=== PATIENT | female | born 1960 | race Caucasian/White ===

== ENCOUNTER 2021-09-06 10:48 | Emergency (ER) | payer OTHER, SELFPAY ==
--- NOTE | 2021-09-06 10:50 | XRR_ITS ---
PROCEDURE INFORMATION: Exam: XR Chest Exam date and time: 09/06/2021 11:53 AM Age: 61 years old Clinical indication: Pain; Chest pressure; Additional info: Cp TECHNIQUE: Imaging protocol: XR of the chest. Views: 1 view. COMPARISON: No relevant prior studies available. FINDINGS: Lungs: Unremarkable. No consolidation. Pleural spaces: Unremarkable. No pleural effusion. No pneumothorax. Heart/Mediastinum: Unremarkable. No cardiomegaly. Bones/joints: Unremarkable. XR/XR chest 1V portable [id number] IMPRESSION: No acute findings.
--- NOTE | 2021-09-06 10:50 | ECG_ITS ---
[facility] Test Date: 2021-09-06 Pat Name: Fannie Shay Department: Room: Gender: Female Collateral Analyst: : 1960 Requested By: Calli Miller Order Number: [id number] Franklin MD: Nestor Wiley M.D. Measurements Intervals [place] Rate: 60 P: 57 OR: 177 QRS: 31 QRSD: 89 T: 61 QT: 413 QTc: 414 Interpretive Statements SINUS RHYTHM No previous ECG available for comparison Electronically Signed On 09-06-2021 16:50:58 CDT by Nestor Wiley M.D. [id number]
[2021-09-06 10:54] VITALS: BP 190/75; PULSE 70; RESP 18; TEMP 36.4; O2SAT 96; BMI 41.5
--- NOTE | 2021-09-06 11:16 | PC.NURSE ---
Pt placed on lunchroom monitor, cont. pulse ox and bp on arrival to room 1
--- NOTE | 2021-09-06 11:18 | CTR_ITS ---
PROCEDURE INFORMATION: Exam: CTA Chest With Contrast Exam date and time: 09/06/2021 12:01 PM Age: 61 years old Clinical indication: Pain; Shortness of breath; Chest pressure; Additional info: SOB TECHNIQUE: Imaging protocol: Computed tomographic angiography of the chest with contrast. 3D rendering (Not supervised by radiologist): MIP and/or 3D reconstructed images were created by the technologist. Radiation optimization: All CT scans at this facility use at least one of these dose optimization techniques: automated exposure control; mA and/or kV adjustment per patient size (includes targeted exams where dose is matched to clinical indication); or iterative reconstruction. Contrast material: OMNI 350; Contrast volume: 81 ml; Contrast route: INTRAVENOUS (IV); COMPARISON: CR (CHEST, ) 09/06/2021 11:53 AM RADIATION DOSE METRICS: Total DLP (mGy-cm): 517.02 FINDINGS: Pulmonary arteries: Normal. No pulmonary emboli. Aorta: Unremarkable. No aortic aneurysm. No aortic dissection. Lungs: There are pulmonary parenchymal calcifications consistent with remote granulomatous organism exposure. Pleural spaces: Unremarkable. No pneumothorax. No pleural effusion. Heart: Mild cardiomegaly. Lymph nodes: Unremarkable. No enlarged lymph nodes. Bones/joints: Unremarkable. No acute fracture. Soft tissues: Unremarkable. CT/CT angio chest PE protcl [id number] IMPRESSION: Mild cardiomegaly. No evidence for pulmonary embolus.
[2021-09-06 11:22] LABS: Basophils # 0.1 10^3/uL (0.0-0.1); Basophils % 0.7 %; Eosinophils # 0.1 10^3/uL (0.0-0.8); Eosinophils % 1.6 %; Hematocrit 42.6 % (37.0-47.0); Hemoglobin 13.7 g/dL (11.5-15.3); Lymphocytes # 3.6 10^3/uL (0.8-4.8); Lymphocytes % 40.3 %; Mean Corpuscular HGB Conc 32.2 g/dL (30.0-36.0); Mean Corpuscular Hemoglobin 28.4 pg (28.0-34.0); Mean Corpuscular Volume 88.4 fl (81-99); Monocytes # 0.8 10^3/uL (0.2-0.9); Monocytes % 8.9 %; Neutrophils # 4.29 10^3/uL (1.8-7.7); Neutrophils % 48.2 %; Nucleated Red Blood Cells % 0 %; Platelet Count 305 10^3/cmm (130-400); Red Blood Count 4.82 10^6/uL (4.1-5.3); Red Cell Distribution Width 13.5 % (12.1-15.1); White Blood Count 8.9 10^3/uL (4.0-10.0)
[2021-09-06] MEDS: HYDROmorphone 1 mg/mL INJ 1 mL 0.5 MG IVP ×2 (11:23→13:21)
[2021-09-06] MEDS: ondansetron 2 mg/ML SDV 2 mL 4 MG IVP (11:23)
--- NOTE | 2021-09-06 11:38 | W.ED.CHESTPA ---
HPI - Chest Pain General: Chief Complaint: Chest Pain Stated Complaint: SOB, Pain from back to chest Time Seen by Provider: 09/06/21 11:04 Source: patient Mode of arrival: ambulatory Limitations: no limitations History of Present Illness: 61-year-old female who states that over the last day she woke up this morning with some severe sharp chest pain that radiated to her back. States that it is very sharp in nature rates it a 9 out of 10 is worse with deep breaths 10. She denies any cough or fever she states she has had pleurisy in the past and this feels similar. She denies any vomiting or diarrhea. Associated symptoms: Reports dyspnea; Deny abdominal pain, fever(s), nausea or vomiting Review of Systems Const: Denies: fever(s), chills, body aches or change in appetite Eyes: Denies: blurry vision or eye discomfort ENMT: Denies: throat pain or dental pain Card: Reports: chest pain Resp: Reports: dyspnea GI: Denies: abdominal pain, nausea, vomiting or diarrhea : Denies: dysuria Musc: Denies: neck pain or back pain Skin/Breast: Denies: rash Neuro: Denies: headache(s) Psych: Denies: depression Nabil/Lymph: Denies: easy bruising All/Imm: Denies: urticaria PFSH ED PFSH: Medical History (Updated 09/06/21 @ 13:42 by Calli Miller MD) COPD (chronic obstructive pulmonary disease) Social History (Updated 09/06/21 @ 11:40 by Calli Miller MD) Substance/Drug Use: never Physical Exam Const: COMMON NORMALS: no acute distress, patient oriented x3 and healthy appearing HENMT: COMMON NORMALS: normocephalic and atraumatic HEAD & SCALP: normocephalic and atraumatic Eye: COMMON NORMALS: Equal, round and reactive pupils present and EOMs intact bilaterally PUPIL: Yes Equal, round and reactive pupils present Neck/C-Spine: COMMON NORMALS: full ROM and supple Chest: COMMONS NORMALS: normal inspection of the chest and normal palpation of entire chest wall Resp: COMMON NORMALS: normal respiratory effort, No retractions, No use of accessory muscles and clear to auscultation bilaterally AUSCULTATION: clear to auscultation bilaterally Cardio: COMMON NORMALS: regular rate, regular rhythm and No murmurs present (Cardio) RATE: regular rate RHYTHM: regular rhythm GI: COMMON NORMALS: Normal to inspection, nondistended, normoactive bowel sounds present, Soft to palpation, non-tender and no masses PALPATION: Yes Soft to palpation Extremity: COMMON NORMALS: normal to inspection and full ROM Neuro: COMMON NORMALS: patient oriented x3, moves all extremities and no focal motor deficits Psych: COMMON NORMALS: mental status grossly normal, Normal thought process present and cooperative THOUGHT PROCESS: Normal thought process present Skin: COMMON NORMALS: no rashes or lesions noted and no wounds GENERAL SKIN EXAM: no rashes or lesions noted Course Vital Signs: Vital signs: Vital Signs Temperature 97.6 F 09/06/21 10:54 Pulse Rate 56 L 09/06/21 12:51 Respiratory Rate 16 09/06/21 12:51 Blood Pressure 188/78 09/06/21 12:51 Pulse Oximetry 94 09/06/21 12:51 MDM - Chest Pain Medical Decision Making Patient presents here with chest pain likely pleuritic in nature her initial repeat troponin here is negative CTA shows no signs of PE or dissection she feels improved we will place her on hydrocodone and Naprosyn she is to follow-up with her PCP and return if worsening she understands agrees to plan. Lab Data : 09/06/21 11:08 09/06/21 11:08 Radiology Impressions Chest X-Ray 09/06/21 10:50 IMPRESSION: No acute findings. Chest CTA 09/06/21 11:18 IMPRESSION: Mild cardiomegaly. No evidence for pulmonary embolus. Laboratory Results WBC 8.9 10^3/uL (4.0-10.0) 09/06/21 11:08 RBC 4.82 10^6/uL (4.1-5.3) 09/06/21 11:08 Hgb 13.7 g/dL (11.5-15.3) 09/06/21 11:08 Hct 42.6 % (37.0-47.0) 09/06/21 11:08 MCV 88.4 fl (81-99) 09/06/21 11:08 MCH 28.4 pg (28.0-34.0) 09/06/21 11:08 MCHC 32.2 g/dL (30.0-36.0) 09/06/21 11:08 RDW 13.5 % (12.1-15.1) 09/06/21 11:08 Plt Count 305 10^3/cmm (130-400) 09/06/21 11:08 MPV 11.0 fL (7.4-10.4) H 09/06/21 11:08 Neut % (Auto) 48.2 % 09/06/21 11:08 Lymph % (Auto) 40.3 % 09/06/21 11:08 [place] % (Auto) 8.9 % 09/06/21 11:08 Eos % (Auto) 1.6 % 09/06/21 11:08 Baso % (Auto) 0.7 % 09/06/21 11:08 Neut # (Auto) 4.29 10^3/uL (1.8-7.7) 09/06/21 11:08 Lymph # (Auto) 3.6 10^3/uL (0.8-4.8) 09/06/21 11:08 [place] # (Auto) 0.8 10^3/uL (0.2-0.9) 09/06/21 11:08 Eos # (Auto) 0.1 10^3/uL (0.0-0.8) 09/06/21 11:08 Baso # (Auto) 0.1 10^3/uL (0.0-0.1) 09/06/21 11:08 Nucleated RBC % (auto) 0 % 09/06/21 11:08 Nucleated RBCs # 0.0 /100WBC 09/06/21 11:08 Sodium 138 mmol/L (136-145) 09/06/21 11:08 Potassium 3.8 mmol/L (3.5-5.1) 09/06/21 11:08 Chloride 101 mmol/L (98-107) 09/06/21 11:08 Carbon Dioxide 25 mmol/L (22-29) 09/06/21 11:08 Anion Gap 15.8 (5-19) 09/06/21 11:08 BUN 21 mg/dL (8-23) 09/06/21 11:08 Creatinine 0.7 mg/dL (0.5-0.9) 09/06/21 11:08 GFR Calculation 84.8 mL/min (90-130) L 09/06/21 11:08 Glucose 112 mg/dL (65-115) 09/06/21 11:08 Calculated Osmolality 290 mOsm/kg (285-295) 09/06/21 11:08 Calcium 9.3 mg/dL (8.5-10.5) 09/06/21 11:08 Total Bilirubin 0.3 mg/dL (0.15-1.2) 09/06/21 11:08 AST 31 U/L (0-32) 09/06/21 11:08 ALT 36 U/L (0-33) H 09/06/21 11:08 Alkaline Phosphatase 113 IU/L (35-105) H 09/06/21 11:08 Troponin T Baseline 9 ng/L (0-10) 09/06/21 11:08 Troponin T 120 Minute 6.37 ng/L (0-10) 09/06/21 13:07 Delta Troponin T -2.63 ABS# (0-10) L 09/06/21 13:07 Total Protein 7.7 g/dL (6.6-8.7) 09/06/21 11:08 Albumin 4.3 g/dL (3.5-5.2) 09/06/21 11:08 Globulin 3.4 g/dL (1.3-4.6) 09/06/21 11:08 EKG Data EKG 1: I personally reviewed and interpreted this EKG as follows: EKG interpretation date: 09/06/21 EKG interpretation time: 11:01 Interpretation: nsr hr [address] or t wave abnormalities qrs 89 qtc 414 EKG 2: I personally reviewed and interpreted this EKG as follows: EKG interpretation date: 09/06/21 EKG interpretation time: 13:04 Interpretation: sinus yahaira hr [address] or t wave abnormalities qrs 89 qtc 431 Discharge Plan Discharge Patient Disposition: Home Clinical Impression: Chest pain Qualifiers: Chest pain type: unspecified Qualified Code(s): R07.9 - Chest pain, unspecified Condition: Stable Prescriptions: New hydrocodone-acetaminophen 5-325 mg tablet 1 tab PO Q6H PRN (Reason: pain) Qty: 14 0RF ondansetron 4 mg tablet,disintegrating 4 mg PO Q6H PRN (Reason: nausea and vomiting) Qty: 14 0RF Naprosyn 500 mg tablet 500 mg PO BID PRN (Reason: pain) Qty: 20 0RF No Action metoprolol tartrate 50 mg tablet 50 mg PO DAILY 0RF furosemide 20 mg tablet 10 mg PO QAM 0RF omeprazole 20 mg tablet,disintegrat, delay rel PO 0RF Flovent Diskus 50 mcg/actuation blister with device 1 inh inhalation BID 0RF albuterol sulfate 90 mcg/actuation HFA aerosol inhaler 1 inh inhalation QID 0RF Discharge Orders: Discharge ED (Routine); Ordered 09/06/21 Ordered By: Calli Miller Referrals: Sharlene Yoo MD [Staff Physician] - 1-3 days Discharge Diet: Advance as tolerated Discharge Activity: Resume usual activity Patient Instructions: Chest Pain (ED), Opioid Safety Coding Level of Care Code ED Reeler Operator for Chg Fwd Exam Comprehensive
[2021-09-06 11:39] VITALS: BP 188/85; PULSE 51; RESP 25; O2SAT 97
[2021-09-06 11:39] LABS: Alanine Aminotransferase 36 U/L (0-33); Albumin Level 4.3 g/dL (3.5-5.2); Alkaline Phosphatase 113 IU/L (35-105); Aspartate Amino Transferase 31 U/L (0-32); Blood Urea Nitrogen 21 mg/dL (8-23); Calcium 9.3 mg/dL (8.5-10.5); Carbon Dioxide 25 mmol/L (22-29); Chloride 101 mmol/L (98-107); Globulin 3.4 g/dL (1.3-4.6); Glomerular Filtration Rate 84.8 mL/min (90-130); Glucose 112 mg/dL (65-115); Osmolality Calculated 290 mOsm/kg (285-295); Sodium 138 mmol/L (136-145); Total Bilirubin 0.3 mg/dL (0.15-1.2); Total Protein 7.7 g/dL (6.6-8.7)
[2021-09-06 11:40] LABS: Troponin(5th) Baseline 9 ng/L (0-10)
[2021-09-06 11:46] LABS: Anion Gap 15.8 (5-19); Potassium 3.8 mmol/L (3.5-5.1)
[2021-09-06] MEDS: iohexol 350 mg/mL 100 mL Btl IV (12:05)
--- NOTE | 2021-09-06 12:50 | ECG_ITS ---
[facility] Test Date: 2021-09-06 Pat Name: Fannie Shay Department: Room: Gender: Female Nnps: : 1960 Requested By: Calli Miller Order Number: [id number] Franklin MD: Nestor Wiley M.D. Measurements Intervals [place] Rate: 56 P: 51 OK: 179 QRS: 20 QRSD: 89 T: 54 QT: 440 QTc: 426 Interpretive Statements SINUS BRADYCARDIA Compared to ECG 09/06/2021 11:01:03 Sinus rhythm no longer present Electronically Signed On 09-06-2021 18:07:30 CDT by Nestor Wiley M.D. [email or web address] hospitalAmplion Clinical Communicationsselect medical ohiohealth rehabilitation [facility] - [place].[employer]/store/OM/[id number]
[2021-09-06 12:51] VITALS: BP 188/78; PULSE 56; RESP 16; O2SAT 94
[2021-09-06 13:35] LABS: Troponin 5 2HR 6.37 ng/L (0-10)
[2021-09-06 13:43] LABS: Troponin 5 2HR Delta -2.63 ABS# (0-10)
[2021-09-06 13:58] VITALS: BP 193/88; PULSE 52; RESP 18; O2SAT 95
== END 2021-09-06 14:04 | disposition home or self-care (01) ==
PROVIDERS: Emergency Provider Emergency Medicine
DX: R07.9 Chest pain, unspecified (principal); J44.9 Chronic obstructive pulmonary disease, unspecified
CPT/HCPCS: 71045; 71275; 80053; 84484; 85025; 93005; 96374; 96375; 96376; 99284; J1170; J2405; Q9967

== ENCOUNTER 2022-12-10 13:27 | Observation (INO) | payer OTHER, SELFPAY ==
[2022-12-10] VITALS (9 sets, daily range): BP systolic 134–229; BP diastolic 78–174; PULSE 75–134; RESP 16–24; TEMP 36.5–36.8; O2SAT 96–99; BMI 41.1
--- NOTE | 2022-12-10 13:40 | ED_ITS ---
HPI - Chest Pain General: Chief Complaint: Chest Pain Stated Complaint: Naila sent for heart issues Time Seen by Provider: 12/10/22 13:33 History of Present Illness: Ms. Shay is a 62-year-old lady with history of COPD and hypertension presented to the emergency department for evaluation of chest pain and shortness of breath. She notes intermittent episodes of fluttering in her chest and squeezing pressure as well as shortness of breath over the past few weeks which has been i ncreasing in frequency and intensity. Worse symptoms with exertion and lying flat. She also notes pain radiation up into her neck and at times headache. Moderate to severe in intensity. Denies history of atrial fibrillation. Reports compliance with her medications. No other specific changes in health, exacerbating, or alleviating factors identified. Onset (ago): week(s) Timing of current episode: episodic Pain location: substernal Pain radiation: neck Quality: heaviness Associated symptoms: Reports dyspnea, nausea and palpitations Review of Systems General: Reports: 10 or more systems reviewed and unremarkable except in HPI and below Card: Reports: palpitations Resp: Reports: dyspnea GI: Reports: nausea PFSH ED PFSH: Medical History COPD (chronic obstructive pulmonary disease) Social History Substance/Drug Use: never Physical Exam Const: COMMON NORMALS: alert GENERAL APPEARANCE: cooperative and well developed HENMT: COMMON NORMALS: normocephalic and atraumatic HEAD & SCALP: normocephalic and atraumatic Eye: COMMON NORMALS: conjunctivae normal CONJUNCTIVA: Yes conjunctivae normal SCLERA: sclerae normal Neck/C-Spine: COMMON NORMALS: supple GENERAL: Yes trachea midline Resp: COMMON NORMALS: normal respiratory effort EFFORT & INSPECTION: Yes able to speak in complete sentences Cardio: COMMON NORMALS: regular rate RATE: regular rate RHYTHM: abnormal rhythm irregularly irregular GI: COMMON NORMALS: Soft to palpation PALPATION: Yes Soft to palpation and No Tenderness to palpation present (GI) Extremity: GENERAL: Yes normal exam except as noted and No edema Neuro: COMMON NORMALS: moves all extremities SENSORIUM/ORIENTATION: Yes alert and No Orientation impaired Psych: COMMON NORMALS: mental status grossly normal and Normal thought process present THOUGHT PROCESS: Normal thought process present Course Vital Signs: Vital signs: Vital Signs Temperature 98.4 F 12/12/22 11:51 Pulse Rate 85 12/12/22 11:51 Respiratory Rate 16 12/12/22 11:51 Blood Pressure 144/73 12/12/22 11:51 Pulse Oximetry 95 12/12/22 11:51 Oxygen Delivery Me thod Room Air 12/12/22 11:26 MDM - Chest Pain Medical Decision Making 62-year-old lady presenting with chest discomfort and generalized illness. Exam as noted. Nontoxic. EKG demonstrates atrial fibrillation with no STEMI. No significant hematologic or metabolic abnormalities to explain symptoms. Negative range 2-hour delta troponin. No UTI. Chest x-ray with no lobar consolidation or pneumothorax. Treated during ED course with nitroglycerin and aspirin. Patient has new onset A-fib with signs and symptoms of congestive heart failure. Given severity of symptoms she requires in-hospital evaluation. The results of ED evaluation were discussed with the patient including plan for admission due to requirement for level of care not available if discharged to prevent significant worsening/deterioration. Patient agreeable with plan. Discussed with hospitalist service who was agreeable to admit patient. Medical Records I reviewed the patient's medical records. Lab Data I reviewed the patient's lab results. 12/10/22 13:45 12/12/22 04:08 Radiology Impressions Chest X-Ray 12/10/22 13:41 Impression: Negative chest. Carotid Doppler Study 12/11/22 16:38 IMPRESSION: No carotid arterial stenosis. REFERENCES: SRU CRITERIA. The degree of internal carotid artery stenosis is based on criteria defined by the Society of Radiologists in Ultrasound (SRU). Normal is no stenosis. Mild is less than 50% stenosis. Moderate is 50-69% stenosis. Severe is greater than 69% stenosis to near occlusion. Near occlusion is a markedly narrowed lumen. Total occlusion is no detectable patent lumen. Laboratory Results WBC 8.2 10^3/uL (4.0-10.0) 12/10/22 13:45 RBC 5.07 10^6/uL (4.1-5.3) 12/10/22 13:45 Hgb 14.6 g/dL (11.5-15.3) 12/10/22 13:45 Hct 44.9 % (37.0-47.0) 12/10/22 13:45 MCV 88.6 fl (81-99) 12/10/22 13:45 MCH 28.8 pg (28.0-34.0) 12/10/22 13:45 MCHC 32.5 g/dL (30.0-36.0) 12/10/22 13:45 RDW 14.0 % (12.1-15.1) 12/10/22 13:45 Plt Count 313 10^3/cmm (130-400) 12/10/22 13:45 MPV 10.7 fL (7.4-10.4) H 12/10/22 13:45 Neut % (Auto) 46.5 % 12/10/22 13:45 Lymph % (Auto) 43.8 % 12/10/22 13:45 [place] % (Auto) 7.4 % 12/10/22 13:45 Eos % (Auto) 1.2 % 12/10/22 13:45 Baso % (Auto) 0.7 % 12/10/22 13:45 Neut # (Auto) 3.83 10^3/uL (1.8-7.7) 12/10/22 13:45 Lymph # (Auto) 3.6 10^3/uL (0.8-4.8) 12/10/22 13:45 [place] # (Auto) 0.6 10^3/uL (0.2-0.9) 12/10/22 13:45 Eos # (Auto) 0.1 10^3/uL (0.0-0.8) 12/10/22 13:45 Baso # (Auto) 0.1 10^3/uL (0.0-0.1) 12/10/22 13:45 Nucleated RBC % (auto) 0 % 12/10/22 13:45 Nucleated RBCs # 0.0 /100WBC 12/10/22 13:45 PT 12.60 SECONDS (12.1-14.9) 12/10/22 13:45 INR 0.92 (0.8-1.2) 12/10/22 13:45 APTT 26.7 SECONDS (23.9-36.7) 12/10/22 13:45 D-Dimer 0.38 ug/mIFEU (0-0.59) 12/10/22 13:45 Sodium 137 mmol/L (136-145) 12/10/22 13:45 Potassium 4.0 mmol/L (3.5-5.1) 12/10/22 13:45 Chloride 100 mmol/L (98-107) 12/10/22 13:45 Carbon Dioxide 24 mmol/L (22-29) 12/10/22 13:45 Anion Gap 17.0 (5-19) 12/10/22 13:45 BUN 23 mg/dL (8-23) 12/10/22 13:45 Creatinine 0.8 mg/dL (0.5-0.9) 12/10/22 13:45 GFR Calculation 72.4 mL/min (90-130) L 12/10/22 13:45 Glucose 132 mg/dL (65-115) H 12/10/22 13:45 Calculated Osmolality 290 mOsm/kg (285-295) 12/10/22 13:45 Calcium 9.6 mg/dL (8.5-10.5) 12/10/22 13:45 Magnesium 2.0 mg/dL (1.7-2.3) 12/10/22 13:45 Total Bilirubin 0.3 mg/dL (0.15-1.2) 12/10/22 13:45 AST 19 U/L (0-32) 12/10/22 13:45 ALT 20 U/L (0-33) 12/10/22 13:45 Alkaline Phosphatase 95 U/L (35-105) 12/10/22 13:45 Troponin T Baseline 9 ng/L (0-10) 12/10/22 13:45 NT-Pro-B Natriuret Pep 867 pg/mL (0-125) H 12/10/22 13:45 Total Protein 7.3 g/dL (6.6-8.7) 12/10/22 13:45 Albumin 4.2 g/dL (3.5-5.2) 12/10/22 13:45 Globulin 3.1 g/dL (1.3-4.6) 12/10/22 13:45 TSH 4.09 uIU/mL (0.27-4.20) 12/10/22 13:45 Urine Color Yellow (Yellow) 12/10/22 14:05 Urine Appearance Clear (CLEAR) 12/10/22 14:05 Urine pH 7 (5-7) 12/10/22 14:05 Ur Specific [place] 1.005 (1.005-1.030) 12/10/22 14:05 Urine Protein Neg (Negative) 12/10/22 14:05 Urine Glucose (UA) Norm (Normal) 12/10/22 14:05 Urine Ketones Negative (Negative) 12/10/22 14:05 Urine Blood Neg (Negative) 12/10/22 14:05 Urine Nitrate Negative (Negative) 12/10/22 14:05 Urine Bilirubin Neg (Negative) 12/10/22 14:05 Urine Urobilinogen Norm mg/dL (Negative) 12/10/22 14:05 Ur Leukocyte Esterase Negative (Negative) 12/10/22 14:05 Discharge Plan Discharge Patient Disposition: Placed in Observation Admit Provider: Rosalio Lara Clinical Impression: New onset a-fib, Chest pain, Symptom of congestive heart failure Discharge Diet: Usual diet and Cardiac Discharge Activity: Resume usual activity Coding Level of Care Code ED Banding Machine Operator for Andrade Charles
--- NOTE | 2022-12-10 13:41 | ECG_ITS ---
[facility] Test Date: 2022-12-10 Pat Name: Fannie Shay Department: Room: Gender: Female Coordinator Skill Training Program: : 1960 Requested By: Elmo Koch Order Number: [id number] Reid MD: Mariama Agarwal M.D. Measurements Intervals [place] Rate: 87 P: 0 NV: 0 QRS: 15 QRSD: 91 T: 67 QT: 380 QTc: 459 Interpretive Statements ATRIAL FIBRILLATION ABNORMAL RHYTHM ECG Compared to ECG 09/06/2021 13:04:37 Sinus bradycardia no longer present Electronically Signed On 12-10-2022 13:54:19 CDT by Mariama Agarwal M.D. [email or web address] [email or web address] Technologies/store/NU/[id number] f
--- NOTE | 2022-12-10 13:41 | XR_ITS ---
WS: [id number] Portable AP upright chest, 12/10/2022 Clinical Data: cp Comparison: Portable chest, 09/06/2021 Findings: No nodules, masses or effusions are seen. The heart is normal. The pulmonary vascularity is not increased. No pneumonia or pneumothorax is seen. Monitor leads are on the chest wall. The patien t's clothing obscures only minimal detail. XR/XR chest 1V portable [id number] Impression: Negative chest.
[2022-12-10] MEDS: aspirin 81 mg Chew Tablet 324 MG PO (13:47)
[2022-12-10] MEDS: nitroglycerin 0.4 mg sublingual Tablet SUBLINGUAL (13:59)
[2022-12-10 14:03] LABS: Basophils # 0.1 10^3/uL (0.0-0.1); Basophils % 0.7 %; Eosinophils # 0.1 10^3/uL (0.0-0.8); Eosinophils % 1.2 %; Hematocrit 44.9 % (37.0-47.0); Hemoglobin 14.6 g/dL (11.5-15.3); Lymphocytes # 3.6 10^3/uL (0.8-4.8); Lymphocytes % 43.8 %; Mean Corpuscular HGB Conc 32.5 g/dL (30.0-36.0); Mean Corpuscular Hemoglobin 28.8 pg (28.0-34.0); Mean Corpuscular Volume 88.6 fl (81-99); Mean Platelet Volume 10.7 fL (7.4-10.4); Monocytes # 0.6 10^3/uL (0.2-0.9); Monocytes % 7.4 %; Neutrophils # 3.83 10^3/uL (1.8-7.7); Neutrophils % 46.5 %; Nucleated Red Blood Cells % 0 %; Platelet Count 313 10^3/cmm (130-400); Red Blood Count 5.07 10^6/uL (4.1-5.3); White Blood Count 8.2 10^3/uL (4.0-10.0)
[2022-12-10 14:18] LABS: Troponin(5th) Baseline 9 ng/L (0-10)
[2022-12-10 14:20] LABS: Add Urine Microscopic? NO; Charge for UA Resulting for Rev
[2022-12-10 14:23] LABS: INR 0.92 (0.8-1.2)
[2022-12-10 14:25] LABS: Partial Thromboplastin Time 26.7 SECONDS (23.9-36.7)
[2022-12-10 14:29] LABS: Alanine Aminotransferase 20 U/L (0-33); Albumin Level 4.2 g/dL (3.5-5.2); Alkaline Phosphatase 95 U/L (35-105); Aspartate Amino Transferase 19 U/L (0-32); Blood Urea Nitrogen 23 mg/dL (8-23); Calcium 9.6 mg/dL (8.5-10.5); Carbon Dioxide 24 mmol/L (22-29); Chloride 100 mmol/L (98-107); D Dimer 0.38 ug/mIFEU (0-0.59); Globulin 3.1 g/dL (1.3-4.6); Glomerular Filtration Rate 72.4 mL/min (90-130); Glucose 132 mg/dL (65-115); NT Pro B Type Natriuretic Pept 867 pg/mL (0-125); Osmolality Calculated 290 mOsm/kg (285-295); Sodium 137 mmol/L (136-145); Thyroid Stimulating Hormone 4.09 uIU/mL (0.27-4.20); Total Bilirubin 0.3 mg/dL (0.15-1.2); Total Protein 7.3 g/dL (6.6-8.7)
[2022-12-10 14:49] LABS: Bilirubin Urine Neg (Negative); Blood Urine Neg (Negative); Glucose Urine UA Norm (Normal); Ketones Urine Negative (Negative); Leukocyte Esterase Urine Negative (Negative); Nitrate Urine Negative (Negative); Protein Urine Neg (Negative); Specific Gravity, Urine 1.005 (1.005-1.030); Urine Appearance Clear (CLEAR); Urine Color Yellow (Yellow); Urobilinogen Urine Norm (Negative); pH Urine 7 (5-7)
--- NOTE | 2022-12-10 15:02 | PC.PHAR ---
PT CONFUSED ABOUT METOPROLOL AND METFORMIN. VERIFIED DRUG, STRENGTH, DOSAGE AND LAST FILL. 12/10/22
--- NOTE | 2022-12-10 15:23 | PM.HP ---
Providers/Chief Complaint Admitting Physician: Rosalio Lara MD Primary Care Provider: Sharlene Yoo MD Chief Complaint: Naila sent for heart issues History of Present Illness Fannie Shay is a 62 year old female with Hx of HTN, asthma,, pre-DM2, GERD, and arthritis presents to ED with CP and SOB. Onset 3 weeks. Describes intermittent episodes of palpitations and substernal CP associated with SOB. States these have been increasing in intensity over the past 2 weeks. Aggravated by laying flat, exertion, and some radiation to head causing HARRELL. States these episodes last for minutes to hours. Hx of heart flutters but never evaluated by physician. 1 episode of LOC in 07/01, went to [facility] ED for PNA, no abnormal rhythm at time per patient. Admit to having fairly consistent sensation fo suffocation while laying flat in bed causing some CP. improves when sitting up. Denies Hx of NH, HF, CVA, stents. No Hx of ECHO, PCI or stress test. Seen in bed in ED hemodynamically stable in afib rate controlled. currently w/o CP, palpitations, SOB. states that weakens and fatigue have improved since episode ended. Review of Systems General: Reports: 10 or more systems reviewed and unremarkable except in HPI and below Const: Denies: fever(s) or chills Eyes: Denies: change in vision or blurry vision ENMT: Denies: throat pain, odynophagia or hoarseness Card: Reports: chest pain, palpitations, irregular heart rhythm and dyspnea on exertion Resp: Reports: dyspnea; Denies: productive cough, non-productive cough or wheezing GI: Denies: abdominal pain, nausea, vomiting, diarrhea or constipation Musc: Denies: neck pain, back pain or joint pain Skin/Breast: Denies: rash or new lesions Neuro: Denies: headache(s), numbness in extremities or weakness in extremities Medications/Allergies Home Medications Medication Instructions Recorded Confirmed Last Taken Type albuterol sulfate 90 mcg/actuation 1 inh inhalation QID 09/06/21 12/10/22 12/10/22 History aerosol inhaler fluticasone propionate 50 1 inh inhalation BID 09/06/21 12/10/22 12/10/22 History mcg/actuation blister powder for inhalation (Flovent Diskus) omeprazole 20 mg delayed 20 mg PO DAILY PRN Acid Reflux 09/06/21 12/10/22 Unknown History release,disintegrating tablet Lactobacillus acidophilus 100 mg PO DAILY 12/10/22 12/10/22 12/09/22 History (Acidophilus capsule) cranberry 400 mg capsule 400 mg PO DAILY 12/10/22 12/10/22 12/09/22 History estradiol 0.5 mg tablet 0.5 mg PO DAILY 12/10/22 12/10/22 12/10/22 History fexofenadine 180 mg tablet 180 mg PO DAILY 12/10/22 12/10/22 12/10/22 History hydrochlorothiazide 25 mg tablet 25 mg PO DAILY 12/10/22 12/10/22 Unknown History lisinopril 20 mg tablet 20 mg PO DAILY 12/10/22 12/10/22 12/10/22 History meloxicam 15 mg tablet 15 mg PO DAILY 12/10/22 12/10/22 12/10/22 History metformin 500 mg tablet,extended 500 mg PO DAILY 12/10/22 12/10/22 12/09/22 History release 24 hr metoprolol succinate 100 mg 100 mg PO DAILY 12/10/22 12/10/22 12/10/22 History tablet,extended release 24 hr Allergies Allergy/AdvReac Type Severity Reaction Status Date / Time morphine Allergy Mild ADR-Dizzine Verified 09/06/21 10:56 ss metronidazole [From Flagyl] Allergy ALGY-Hives Verified 09/06/21 10:56 PFSH Acute PFSH: Medical History COPD (chronic obstructive pulmonary disease) Social History Substance/Drug Use: never Vitals/I&O/Wt Last Vital Signs Temp 98.3 F 12/10/22 13:31 Pulse 93 12/10/22 15:18 Resp 16 12/10/22 15:18 BP 134/98 12/10/22 15:18 Pulse Ox 96 12/10/22 15:18 O2 Del Method Room Air 12/10/22 13:31 Weight last 48 hrs Weight 240 lb Physical Exam Narrative: General: AOx3, no acute distress, well developed, well nourished, appears stated age psych: appropriate mood and affect. good judgment and insight. No suicidal or homicidal ideation. Head: atraumatic, normocephalic, no mass/lesions Eyes: conjunctiva clear w/o exudate or hemorrhage. non-icteric, EOM intact, PERRLA. no signs of nystagmus Nose: nasal mucosa pink, septum midline Oropharynx: good dentition, pink moist mucosa, non-deviated tongue, no buccal nodules/lesions. no pharyngeal exudate Neck: FROM, no lymphadenopathy, no tracheal deviation, non tender, thyroid gland normal w/o mass. supple Chest: atraumatic, symmetrical CVD: afib, normal rate, normal S1 and S2, no M/R/G. 2+ pulse x 4 extremities, no JVD, no carotid bruit. Lungs: clear lung sounds in all vasquez, no rhonchi, wheezing, rales. Abdomen: NT, ND, soft, NABS. No hepatosplenomegaly, no mass. umbilicus midline w/o herniation : not done on todays examination Rectal: not done on todays examination Spine: no visible deformities, FROM, 5/5 strength Extremities: FROM and 5/5 strength in BUE and BLE. no visible joint abnormalities on active and passive ROM. Neuro: CNII-XII grossly intact. No atrophy, weakness, tremors or clonus.? 2+ DTR, no sensory abnormalities. Skin:? no rash, vesicles, lesions. Data 12/10/22 13:45 12/10/22 13:45 A&P Assessment and plan (1) Symptom of congestive heart failure: concern for new onset HF, BNP 867 will get ECHO, carodid US, AM BNP BNP elevated could be 2/2 afib; however, Sx of orthopnea concerning for underlying HF will give IV lasix 40mg x 1, re-eval in AM (2) New onset a-fib: rate controlled on home Toprol XL 100mg qd, monitor telemetry [id number] score: 2. will start ASA daily AM EKG (3) Paroxysmal A-fib: (4) HTN (hypertension): continue HCTZ and lisinopril, Toprol XL 100mg (5) Pre-diabetes: LDSSI with accuchecks (6) Asthma: continue flovent, albuterol nebs (7) GERD (gastroesophageal reflux disease): protonix 40 Plan admit to [facility] telemetry continue home Metoprolol Succinate 100mg qhs. monitor. may need to increase dosage. ECHO, carotid US AM labs: CMP, BNP, A1c, TSH MARIAM-VASC score -2; started on ASA Kimi 40mg BID due to BMI >40 FULL code Attestations Medical Necessity Statement*: observation for new onset atrial fibrillation. Coding Level of Care Code 79371 Diagnoses Symptom of congestive heart failure R09.89 New onset a-fib I48.91 Paroxysmal A-fib I48.0 HTN (hypertension) I10 Pre-diabetes R73.03 Asthma J45.909 GERD (gastroesophageal reflux disease) K21.9
--- NOTE | 2022-12-10 16:17 | ECG_ITS ---
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 Measurements Intervals [place] Rate: 80 P: 0 ME: 0 QRS: 20 QRSD: 85 T: 57 QT: 399 QTc: 461 Interpretive Statements ATRIAL FIBRILLATION ABNORMAL RHYTHM ECG Compared to ECG 12/10/2022 13:36:57 No significant changes Electronically Signed On 12-10-2022 22:59:21 CDT by Mariama Agarwal M.D. [id number]
[2022-12-10 16:41] LABS: Troponin 5 2HR 7.75 ng/L (0-10); Troponin 5 2HR Delta -1.25 ABS# (0-10)
[2022-12-10 17:44] LABS: Glucose Point of Care 158 mg/dL (70-110)
[2022-12-10] MEDS: enoxaparin 40 mg/0.4 mL Syringe SUBCUT (18:05)
[2022-12-10] MEDS: FUROsemide 10 mg/mL SDV 4mL 40 MG IVP (18:06)
[2022-12-10] MEDS: insulin lispro 100 unit/1 mL SUBCUT (18:06)
[2022-12-10] MEDS: ondansetron 2 mg/ML SDV 2 mL 4 MG IVP (20:07)
[2022-12-10 20:22] LABS: Troponin 5 6HR 7.85 ng/L (0-10)
[2022-12-10 20:39] LABS: Troponin 5 6HR Delta -1.15 ng/L (0-12)
--- NOTE | 2022-12-10 20:59 | PC.NURSE ---
Patient is c/o dizziness and nausea. Last BP is 149/90. She is in afib at rate of 67. Administered Zofran as ordered and documented. Patient is reporting relief at this time.
[2022-12-10 21:17] LABS: Glucose Point of Care 158 mg/dL (70-110)
--- NOTE | 2022-12-10 21:19 | PC.NURSE ---
Patient refused insulin this evening due to low dose. Patient does not want insulin would prefer her metformin. Educated patient on use of insulin during hospital stay. Patient verbalized understanding. Will consider if blood sugar gets higher without her metformin.
[2022-12-11] VITALS (110 sets, daily range): BP systolic 98–165; BP diastolic 62–97; PULSE 76–100; RESP 13–30; TEMP 36.6–36.7; O2SAT 91–99
[2022-12-11 03:51] LABS: Chol HDL Ratio 3.54 mg/dL (0.0-4.40); Cholesterol 202 mg/dL (0-200); HDL Cholesterol 57 mg/dL (60-100); LDL Cholesterol Calculated 109 mg/dL (50-129); LDL HDL Ratio 1.91 RATIO (0.00-3.22); NT Pro B Type Natriuretic Pept 770 pg/mL (0-125); Triglycerides 179 mg/dL (0-150)
[2022-12-11 03:54] LABS: Alanine Aminotransferase 20 U/L (0-33); Albumin Level 3.9 g/dL (3.5-5.2); Alkaline Phosphatase 85 U/L (35-105); Aspartate Amino Transferase 20 U/L (0-32); Blood Urea Nitrogen 24 mg/dL (8-23); Calcium 8.9 mg/dL (8.5-10.5); Carbon Dioxide 25 mmol/L (22-29); Chloride 102 mmol/L (98-107); Globulin 2.7 g/dL (1.3-4.6); Glomerular Filtration Rate 63.2 mL/min (90-130); Glucose 141 mg/dL (65-115); Osmolality Calculated 294 mOsm/kg (285-295); Sodium 139 mmol/L (136-145); Thyroid Stimulating Hormone 2.62 uIU/mL (0.27-4.20); Total Bilirubin 0.4 mg/dL (0.15-1.2); Total Protein 6.6 g/dL (6.6-8.7)
[2022-12-11 03:57] LABS: Anion Gap 16.2 (5-19); Potassium 4.2 mmol/L (3.5-5.1)
[2022-12-11] MEDS: enoxaparin 40 mg/0.4 mL Syringe SUBCUT ×2 (04:02→17:44)
[2022-12-11] MEDS: ondansetron 2 mg/ML SDV 2 mL 4 MG IVP (04:02)
[2022-12-11 04:18] LABS: Estmated Average Glucose 143; Hemoglobin A1C 6.6 % (4.0-6.0)
[2022-12-11 06:45] LABS: Glucose Point of Care 123 mg/dL (70-110)
--- NOTE | 2022-12-11 07:00 | ECG_ITS ---
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 Measurements Intervals [place] Rate: 88 P: 0 [place]: 0 QRS: 1 QRSD: 90 T: 50 QT: 384 QTc: 466 Interpretive Statements ATRIAL FIBRILLATION ABNORMAL RHYTHM ECG Compared to ECG 12/10/2022 16:17:07 No significant changes Electronically Signed On 12-11-2022 13:14:53 CDT by Dillan Magana M.D. [email or web address] [id number]
[2022-12-11] MEDS: budesonide 0.5 mg/2 mL Neb INHALATION ×2 (07:44→20:04)
[2022-12-11] MEDS: albuterol 2.5 mg/3 mL Neb INHALATION ×2 (07:45→20:04)
[2022-12-11] MEDS: fexofenadine 60 mg Tablet 180 MG PO (08:19)
[2022-12-11] MEDS: lisinopril 20 mg Tablet PO (08:19)
[2022-12-11] MEDS: metoprolol succinate ER (24 HR) 100 mg Tablet PO (08:19)
[2022-12-11] MEDS: pantoprazole DR 40 mg Tablet PO (08:20)
[2022-12-11] MEDS: aspirin 325 mg Tablet PO (08:20)
[2022-12-11] MEDS: hydroCHLOROthiazide 25 mg Tablet PO (08:20)
[2022-12-11] MEDS: meloxicam 7.5 mg tablet 15 MG PO (09:21)
[2022-12-11 10:44] LABS: Glucose Point of Care 147 mg/dL (70-110)
--- NOTE | 2022-12-11 13:32 | P.PN_ITS ---
Subjective Subjective: Reports that she is feeling better today. She has not been near as short of breath. Says she is waiting on some studies to be completed and she would like to go home this evening if okay. Denies chest pain or other complaints. Vitals/I&O/Wt Last Vital Signs Temp 97.8 F 12/11/22 08:40 Pulse 84 12/11/22 12:00 Resp 16 12/11/22 12:00 BP 150/93 12/11/22 12:00 Pulse Ox 96 12/11/22 12:00 O2 Del Method Room Air 12/11/22 11:59 12/10/22 12/11/22 12/11/22 22:59 06:59 14:59 Intake Total 400 / 400 480 / 480 Output Total 1000 / 1000 500 / 1500 Balance -1000 / -1000 -100 / -1100 480 / 480 Weight last 48 hrs Weight 248 lb 8 oz Weight 240 lb Physical Exam Narrative: General: Cooperative patient in no apparent distress. Well developed. HEENT: Normocephalic, Atraumatic. External ears normal. Nasal passages patent without drainage. MMM. Heart: RRR. Resp: LCTA. No respiratory distress, no use of accessory muscles. Abd: Soft, non-tender. Non-distended. Extremities: No edema. Skin: No rash or lesions on exposed areas. Const: COMMON NORMALS: no acute distress Data 12/10/22 13:45 12/11/22 02:25 A&P Assessment and plan (1) Symptom of congestive heart failure: Acute. BNP improved. She had good diuresis overnight of 1500 ml, negative balance of 620. Reports shortness of breath is also improved. Echo, carotid ultrasound are pending. Sodium and potassium are stable. We will hold on further diuresis. (2) New onset a-fib: Acute. Morning EKG demonstrates atrial fibrillation. She is currently receiving Lovenox. We will switch to Eliquis prior to discharge. Currently rate controlled. Blood pressure is stable. Continue Toprol for rate control. (3) HTN (hypertension): continue HCTZ and lisinopril, Toprol XL 100mg (4) Pre-diabetes: LDSSI with accuchecks A1c is 6.6. (5) Asthma: continue flovent, albuterol nebs (6) GERD (gastroesophageal reflux disease): protonix 40 Plan 62-year-old female admitted to [facility] for new onset atrial fibrillation and dyspnea on exertion. A.m. EKG continues to demonstrate atrial fibrillation. She is currently on Lovenox twice daily. We will switch this to Eliquis prior to discharge. We will continue her home metoprolol as she is rate controlled at this time. Echo and carotid ultrasound are pending. If the results of her imaging are normal, or uncomplicated, we can consider discharge this evening. MARIAM-VASC score -2; started on ASA Code Status: Full IVF: None DVT PPx: Lovenox GI PPx: Protonix ABx: None Diet: Cardiac diet Discharge plan: Home Attestations Medical Necessity Statement*: Patient admitted for observation due to acute onset of atrial fibrillation, shortness of breath. Echocardiogram and carotid ultrasound are pending. Will discharge to home when these are completed and if they are normal. Coding Level of Care Code Acute Code for Chg Fwd Moderate MDM includes number and complexity of problems actively addressed du aditi encounter, amount and/or complexity of data reviewed/ordered and described risk of complication, morbidity or mortality of management as documented Diagnoses Symptom of congestive heart failure R09.89 New onset a-fib I48.91 HTN (hypertension) I10 Pre-diabetes R73.03 Asthma J45.909 GERD (gastroesophageal reflux disease) K21.9
--- NOTE | 2022-12-11 16:38 | USCV_ITS ---
Fannie Shay Age: 62 Gender: F : 1960 Exam Date: 12/11/2022 11:02 Ordering Phys: Rosalio Lara MD Technologist: COURTNEY Exam Location: [facility] [place] Indication: hf BP: / HR: 80 Rhythm: Sinus Technical Quality: Adequate MEASUREMENTS (Male / Female) Normal Values 2D ECHO LV Diastolic Diameter PLAX 4.6 cm 4.2 - 5.9 / 3.9 - 5.3 cm LV Systolic Diameter PLAX 3.7 cm IVS Diastolic Thickness 1.0 cm 0.6 - 1.0 / 0.6 - 0.9 cm IVS Systolic Thickness 1.7 cm LVPW Diastolic Thickness 1.2 cm 0.6 - 1.0 / 0.6 - 0.9 cm LVPW Systolic Thickness 1.1 cm LVOT Diameter 2.1 cm LV Ejection Fraction 2D Teich 38.7 % LV Ejection Fraction MOD 2C 58.0 % LV Ejection Fraction 2C AL 56.9 % LA Diameter 3.7 cm M-MODE Aortic Annulus Diameter 2.5 cm LA Ao Ratio MM 1.6 MV E Point Septal Separation 0.4 cm DOPPLER AV Peak Velocity 145.0 cm/s LVOT Peak Velocity 124.0 cm/s AV Area Cont Eq vti 2.7 cm squared AV Area Cont Eq pk 3.1 cm squared MV Area PHT 4.2 cm squared MV E' Velocity 89.0 cm/s TR Peak Velocity 244.0 cm/s TR Peak Gradient 23.8 mmHg TV Peak E Velocity 63.0 cm/s Right Atrial Pressure 6.0 mmHg Pulmonary Artery Systolic Pressu 29.8 mmHg PV Peak Velocity 94.3 cm/s FINDINGS Left Ventricle Normal left ventricular size and systolic function, EF 57 %. No regional wall motion abnormalities. Mild left ventricular hypertrophy. Right Ventricle The right ventricle is normal in size and function. Right Atrium The right atrium is normal in size. Left Atrium The left atrium is normal in size. Mitral Valve No gross abnormalities noted Aortic Valve Mild aortic valve regurgitation. Tricuspid Valve Trace tricuspid valve regurgitation. Pulmonic Valve No gross abnormalities noted Pericardium Normal pericardium without effusion. Aorta The aortic arch is having a diameter 3.54 cm IVC The inferior vena cava appears normal. CONCLUSIONS Normal left ventricular size and systolic function, EF 57 %. No regional wall motion abnormalities. Mild left ventricular hypertrophy. Mild aortic valve regurgitation. Trace tricuspid valve regurgitation. Estimated pulmonary artery peak systolic pressure 30 mmHg There is no pericardial effusion. There are no intracardiac masses. No similar previous studies are available for comparison Dr Dillan Magana MD FAC (Electronically Signed) Final Date: 12 December 2022 12:57 S
--- NOTE | 2022-12-11 16:38 | USR_ITS ---
PROCEDURE INFORMATION: Exam: US Duplex Bilateral Extracranial Arteries; Complete; Carotid Arteries Exam date and time: 12/11/2022 11:24 AM Age: 62 years old Clinical indication: Other: Afib; Additional info: New onset afib TECHNIQUE: Imaging protocol: Real-time duplex ultrasound scan of the bilateral extracranial arteries combining lema scale, color Doppler and spectral waveform analysis with image documentation. Complete exam. Exam focused on the carotid arteries. COMPARISON: CT angio chest PE protcl [id number] 09/06/2021 12:01 PM FINDINGS: Right common carotid artery: Unremarkable. No occlusion or stenosis. Waveforms are normal. Right internal carotid artery: Unremarkable. No occlusion or stenosis. Waveforms are normal. Right ICA/CCA ratio: Within normal limits. Right external carotid artery: No stenosis in the origin. Right vertebral artery: Unremarkable. Antegrade flow. Left common carotid artery: Unremarkable. No occlusion or stenosis. Waveforms are normal. Left internal carotid artery: Unremarkable. No occlusion or stenosis. Waveforms are normal. Left ICA/CCA ratio: Within normal limits. Left external carotid artery: No stenosis in the origin. Left vertebral artery: Unremarkable. Antegrade flow. US/CV carotid duplex BI* [id number] IMPRESSION: No carotid arterial stenosis. REFERENCES: SRU CRITERIA. The degree of internal carotid artery stenosis is based on criteria defined by the Society of Radiologists in Ultrasound (SRU). Normal is no stenosis. Mild is less than 50% stenosis. Moderate is 50-69% stenosis. Severe is greater than 69% stenosis to near occlusion. Near occlusion is a markedly narrowed lumen. Total occlusion is no detectable patent lumen.
[2022-12-11 17:16] LABS: Glucose Point of Care 121 mg/dL (70-110)
[2022-12-11 20:54] LABS: Glucose Point of Care 147 mg/dL (70-110)
[2022-12-11] MEDS: insulin lispro 100 unit/1 mL SUBCUT (21:09)
[2022-12-12] VITALS: BP 110/60; PULSE 90; RESP 15; TEMP 36.5; O2SAT 96
[2022-12-12 04:00] VITALS: BP 113/74; PULSE 76; RESP 15; TEMP 36.5; O2SAT 94
[2022-12-12] MEDS: enoxaparin 40 mg/0.4 mL Syringe SUBCUT (04:08)
[2022-12-12 04:53] VITALS: PULSE 72
[2022-12-12 05:11] LABS: Alanine Aminotransferase 17 U/L (0-33); Albumin Level 3.5 g/dL (3.5-5.2); Alkaline Phosphatase 81 U/L (35-105); Aspartate Amino Transferase 17 U/L (0-32); Blood Urea Nitrogen 21 mg/dL (8-23); Calcium 8.9 mg/dL (8.5-10.5); Carbon Dioxide 24 mmol/L (22-29); Chloride 102 mmol/L (98-107); Globulin 2.7 g/dL (1.3-4.6); Glomerular Filtration Rate 63.2 mL/min (90-130); Glucose 143 mg/dL (65-115); Osmolality Calculated 291 mOsm/kg (285-295); Sodium 138 mmol/L (136-145); Total Bilirubin 0.3 mg/dL (0.15-1.2); Total Protein 6.2 g/dL (6.6-8.7)
[2022-12-12 05:15] LABS: Anion Gap 16.1 (5-19); Potassium 4.1 mmol/L (3.5-5.1)
[2022-12-12 06:29] LABS: Glucose Point of Care 137 mg/dL (70-110)
[2022-12-12 08:00] VITALS: BP 144/73; PULSE 80; RESP 16; RESP 23; TEMP 36.4; O2SAT 94; O2SAT 95
[2022-12-12] MEDS: albuterol 2.5 mg/3 mL Neb INHALATION (08:12)
[2022-12-12] MEDS: budesonide 0.5 mg/2 mL Neb INHALATION (08:12)
[2022-12-12] MEDS: estradiol 1 mg Tablet 0.5 MG PO (08:31)
[2022-12-12] MEDS: fexofenadine 60 mg Tablet 180 MG PO (08:31)
[2022-12-12] MEDS: pantoprazole DR 40 mg Tablet PO (08:31)
[2022-12-12] MEDS: meloxicam 7.5 mg tablet 15 MG PO (08:31)
[2022-12-12] MEDS: metoprolol succinate ER (24 HR) 100 mg Tablet PO (08:31)
[2022-12-12] MEDS: lisinopril 20 mg Tablet PO (08:31)
[2022-12-12] MEDS: aspirin 325 mg Tablet PO (08:31)
[2022-12-12] MEDS: hydroCHLOROthiazide 25 mg Tablet PO (08:32)
[2022-12-12 11:26] VITALS: PULSE 85; RESP 16; O2SAT 95
[2022-12-12 11:47] LABS: Glucose Point of Care 133 mg/dL (70-110)
[2022-12-12 11:51] VITALS: BP 144/73; PULSE 85; RESP 16; TEMP 36.9; O2SAT 95
--- NOTE | 2022-12-12 12:17 | PM.DCS ---
Discharge Providers Date of Admission: 12/10/22 15:18 Date of Discharge: December 12, 2022 Attending Provider at Admission: Rosalio Lara MD Attending Provider at Discharge: Rosalio Lara MD Primary Care Provider: Sharlene Yoo MD Diagnoses at Discharge Discharge Diagnosis (1) Symptom of congestive heart failure: Status: Acute (2) New onset a-fib: Status: Acute (3) HTN (hypertension): Status: Acute (4) Pre-diabetes: Status: Acute (5) Asthma: Status: Acute (6) GERD (gastroesophageal reflux disease): Status: Acute Reason for Visit Reason for Visit: Naila sent for heart issues Hospital Course Hospital Course Fannie Shay is a 62 year old female with Hx of HTN, asthma,, pre-DM2, GERD, and arthritis presents to ED with CP and SOB for approximately the last 3 weeks. Stated that she was having episodes of palpitations and chest pressure, along with shortness of breath. States that these had been increasing in intensity, and had been worsening when she was lying flat, or with exertion. States these episodes last for minutes to hours. She had talked to her PCP who recommended that she be evaluated in the ER. In the ER she was noted to be in atrial fibrillation, which was new for her. Her heart rate at that time was well controlled. She was started on Lovenox for VTE prophylaxis. She takes metoprolol at home, and this was continued. In addition, patient had a severely elevated blood pressure of 200's/100's. This improved with medication. Chest x-ray was negative for acute cardiopulmonary abnormalities. On exam there was some concern for volume overload. She was started on diuresis and fluid restriction. She did have good diuresis overnight. Carotid Doppler was performed and there were noConcerns for carotid arterial stenosis. Echocardiogram was performed, and results are currently pending. She had good improvement with her symptoms during her hospital stay. She denied having any further episodes of chest pain. She was able to be up and ambulate without any shortness of breath or chest pain. Blood pressures remained stable throughout her stay. She had no hypoxic events. At time of discharge, patient was back in sinus rhythm. She was discharged with starter pack for Eliquis given her atrial fibrillation. She will continue her metoprolol. She was advised to follow-up with her PCP in the next 4 to 7 days, and to discuss with her in regards to cardiology referral. Patient was discharged in stable and improved condition. Physical Exam Narrative: General: Cooperative patient in no apparent distress. Well developed. HEENT: Normocephalic, Atraumatic. External ears normal. Nasal passages patent without drainage. MMM. Heart: RRR. Resp: LCTA. No respiratory distress, no use of accessory muscles. Abd: Soft, non-tender. Non-distended. Extremities: No edema. Skin: No rash or lesions on exposed areas. Discharge Data Studies Completed and Pending Completed Studies During Hospitalization Category Date Time Status XR chest 1V portable [id number] Stat Exams 12/10/22 13:41 Completed CV carotid duplex BI* [id number] Routine Ultrasound 12/11/22 16:38 Completed Pending at discharge Category Date Time Status Comprehensive Metabolic Panel AM LABS Lab 12/13/22 04:00 Ordered CV. echo complete* [id number] Routine Ultrasound 12/11/22 16:38 Taken Radiology Impressions Chest X-Ray 12/10/22 13:41 Impression: Negative chest. Carotid Doppler Study 12/11/22 16:38 IMPRESSION: No carotid arterial stenosis. REFERENCES: SRU CRITERIA. The degree of internal carotid artery stenosis is based on criteria defined by the Society of Radiologists in Ultrasound (SRU). Normal is no stenosis. Mild is less than 50% stenosis. Moderate is 50-69% stenosis. Severe is greater than 69% stenosis to near occlusion. Near occlusion is a markedly narrowed lumen. Total occlusion is no detectable patent lumen. Laboratory Results WBC 8.2 10^3/uL (4.0-10.0) 12/10/22 13:45 RBC 5.07 10^6/uL (4.1-5.3) 12/10/22 13:45 Hgb 14.6 g/dL (11.5-15.3) 12/10/22 13:45 Hct 44.9 % (37.0-47.0) 12/10/22 13:45 MCV 88.6 fl (81-99) 12/10/22 13:45 MCH 28.8 pg (28.0-34.0) 12/10/22 13:45 MCHC 32.5 g/dL (30.0-36.0) 12/10/22 13:45 RDW 14.0 % (12.1-15.1) 12/10/22 13:45 Plt Count 313 10^3/cmm (130-400) 12/10/22 13:45 MPV 10.7 fL (7.4-10.4) H 12/10/22 13:45 Neut % (Auto) 46.5 % 12/10/22 13:45 Lymph % (Auto) 43.8 % 12/10/22 13:45 [place] % (Auto) 7.4 % 12/10/22 13:45 Eos % (Auto) 1.2 % 12/10/22 13:45 Baso % (Auto) 0.7 % 12/10/22 13:45 Neut # (Auto) 3.83 10^3/uL (1.8-7.7) 12/10/22 13:45 Lymph # (Auto) 3.6 10^3/uL (0.8-4.8) 12/10/22 13:45 [place] # (Auto) 0.6 10^3/uL (0.2-0.9) 12/10/22 13:45 Eos # (Auto) 0.1 10^3/uL (0.0-0.8) 12/10/22 13:45 Baso # (Auto) 0.1 10^3/uL (0.0-0.1) 12/10/22 13:45 Nucleated RBC % (auto) 0 % 12/10/22 13:45 Nucleated RBCs # 0.0 /100WBC 12/10/22 13:45 PT 12.60 SECONDS (12.1-14.9) 12/10/22 13:45 INR 0.92 (0.8-1.2) 12/10/22 13:45 APTT 26.7 SECONDS (23.9-36.7) 12/10/22 13:45 D-Dimer 0.38 ug/mIFEU (0-0.59) 12/10/22 13:45 Sodium 138 mmol/L (136-145) 12/12/22 04:08 Potassium 4.1 mmol/L (3.5-5.1) 12/12/22 04:08 Chloride 102 mmol/L (98-107) 12/12/22 04:08 Carbon Dioxide 24 mmol/L (22-29) 12/12/22 04:08 Anion Gap 16.1 (5-19) 12/12/22 04:08 BUN 21 mg/dL (8-23) 12/12/22 04:08 Creatinine 0.9 mg/dL (0.5-0.9) 12/12/22 04:08 GFR Calculation 63.2 mL/min (90-130) L 12/12/22 04:08 Glucose 143 mg/dL (65-115) H 12/12/22 04:08 POC Glucose 133 mg/dL (70-110) H 12/12/22 11:43 Estimat Average Glucose 143 12/11/22 02:25 Hemoglobin A1c 6.6 % (4.0-6.0) H 12/11/22 02:25 Calculated Osmolality 291 mOsm/kg (285-295) 12/12/22 04:08 Calcium 8.9 mg/dL (8.5-10.5) 12/12/22 04:08 Magnesium 2.0 mg/dL (1.7-2.3) 12/10/22 13:45 Total Bilirubin 0.3 mg/dL (0.15-1.2) 12/12/22 04:08 AST 17 U/L (0-32) 12/12/22 04:08 ALT 17 U/L (0-33) 12/12/22 04:08 Alkaline Phosphatase 81 U/L (35-105) 12/12/22 04:08 Troponin T Baseline 9 ng/L (0-10) 12/10/22 13:45 Troponin T 120 Minute 7.75 ng/L (0-10) 12/10/22 15:31 Delta Troponin T -1.25 ABS# (0-10) L 12/10/22 15:31 Troponin T Hi Sens 6Hr 7.85 ng/L (0-10) 12/10/22 19:55 Troponin T Hi Sens 6Hr Delta -1.15 ng/L (0-12) L 12/10/22 19:55 NT-Pro-B Natriuret Pep 770 pg/mL (0-125) H 12/11/22 02:25 Total Protein 6.2 g/dL (6.6-8.7) L 12/12/22 04:08 Albumin 3.5 g/dL (3.5-5.2) 12/12/22 04:08 Globulin 2.7 g/dL (1.3-4.6) 12/12/22 04:08 Triglycerides 179 mg/dL (0-150) H 12/11/22 02:25 Cholesterol 202 mg/dL (0-200) H 12/11/22 02:25 LDL Cholesterol, Calc 109 mg/dL (50-129) 12/11/22 02:25 HDL Cholesterol 57 mg/dL (60-100) L 12/11/22 02:25 LDL/HDL Ratio 1.91 RATIO (0.00-3.22) 12/11/22 02:25 Cholesterol/HDL Ratio 3.54 mg/dL (0.0-4.40) 12/11/22 02:25 TSH 2.62 uIU/mL (0.27-4.20) 12/11/22 02:25 Urine Color Yellow (Yellow) 12/10/22 14:05 Urine Appearance Clear (CLEAR) 12/10/22 14:05 Urine pH 7 (5-7) 12/10/22 14:05 Ur Specific [place] 1.005 (1.005-1.030) 12/10/22 14:05 Urine Protein Neg (Negative) 12/10/22 14:05 Urine Glucose (UA) Norm (Normal) 12/10/22 14:05 Urine Ketones Negative (Negative) 12/10/22 14:05 Urine Blood Neg (Negative) 12/10/22 14:05 Urine Nitrate Negative (Negative) 12/10/22 14:05 Urine Bilirubin Neg (Negative) 12/10/22 14:05 Urine Urobilinogen Norm mg/dL (Negative) 12/10/22 14:05 Ur Leukocyte Esterase Negative (Negative) 12/10/22 14:05 Vitals Last Vital Signs Temp 98.4 F 12/12/22 11:51 Pulse 85 12/12/22 11:51 Resp 16 12/12/22 11:51 BP 144/73 12/12/22 11:51 Pulse Ox 95 12/12/22 11:51 O2 Del Method Room Air 12/12/22 11:26 Discharge Plan Discharge Patient Disposition: Home Condition: Stable Prescriptions: New Eliquis DVT-PE Treat 30D Start 5 mg (74 tabs) tablets,dose pack See Rx Instructions .ROUTE .COMPLEX Qty: 74 0RF Rx Instructions: orally per package directions Continued omeprazole 20 mg tablet,disintegrat, delay rel 20 mg PO DAILY PRN (Reason: Acid Reflux) Flovent Diskus 50 mcg/actuation blister with device 1 inh inhalation BID albuterol sulfate 90 mcg/actuation HFA aerosol inhaler 1 inh inhalation QID meloxicam 15 mg tablet 15 mg PO DAILY lisinopril 20 mg tablet 20 mg PO DAILY metoprolol succinate 100 mg tablet extended release 24 hr 100 mg PO DAILY fexofenadine 180 mg Tablet 180 mg PO DAILY cranberry 400 mg Capsule 400 mg PO DAILY Rx Instructions: administer with a meal hydrochlorothiazide 25 mg Tablet 25 mg PO DAILY estradiol 0.5 mg tablet 0.5 mg PO DAILY Acidophilus Capsule 100 mg PO DAILY metformin 500 mg tablet extended release 24 hr 500 mg PO DAILY Rx Instructions: WITH SUPPER Discharge Orders: Discharge Order (Routine); Ordered 12/12/22 Ordered By: Tong Judge Referrals: Sharlene Yoo MD [Primary Care Provider] - 4-7 days (Please call for an follow-up appointment Sharlene Yoo in 4 t 7 days. ) Discharge Diet: Usual diet and Cardiac Discharge Activity: Resume usual activity Patient Instructions: Apixaban (By mouth) (Eliquis), Heart Failure (DC), A-fib (Atrial Fibrillation) (DC), GERD (Gastroesophageal Reflux Disease) (DC), CHF Stoplight, Opioid Safety Patient's Health Concerns: Discussed risks associated with taking Eliquis, is aware of increased bleeding risks and S/S to watch for. Discharge Attestations Time Spent in Discharge Care*: greater than 30 min Specific Discharge Activities: educating patient, educating and/or supporting family/caregiver, documenting/other paperwork and evaluating patient/reviewing data Quality Metrics Clinical Quality Measures [ No reported AMI, CVA or VTE this stay] Coding Level of Care Code Acute Code for Chg Fwd Total time (in minutes) for Discharge: 38 Diagnoses Symptom of congestive heart failure R09.89 New onset a-fib I48.91 HTN (hypertension) I10 Pre-diabetes R73.03 Asthma J45.909 GERD (gastroesophageal reflux disease) K21.9
== END 2022-12-12 12:22 | disposition home or self-care (01) ==
LOC: ER 15:23 → CSU 15:31
PROVIDERS: Admitting Provider Family Medicine; Emergency Provider Emergency Medicine; PCP Family Medicine; Visit Provider Family Medicine
DX: I48.91 Unspecified atrial fibrillation (principal); I10 Essential (primary) hypertension; K21.9 Gastro-esophageal reflux disease without esophagitis; R73.03 Prediabetes; R09.89 Other specified symptoms and signs involving the circulatory and respiratory systems; J44.9 Chronic obstructive pulmonary disease, unspecified
CPT/HCPCS: 36415; 36416; 71045; 80053; 80061; 81003; 82962; 83036; 83735; 83880; 84443; 84484; 85025; 85378; 85610; 85730; 93005; 93306; 93880; 94640; 96361; 96372; 96374; 96375; 96376; 99285; G0378; J1650; J1815; J1940; J2405; J7613; J7626; J8499

== ENCOUNTER → 2023-01-12 10:41 | Outpatient (BNVA) | payer OTHER, SELFPAY | PROVIDERS: PCP Family Medicine; Visit Provider Internal Medicine Cardiovascular Disease | DX: R06.02 Shortness of breath (principal); R07.9 Chest pain, unspecified; N18.9 Chronic kidney disease, unspecified; I48.91 Unspecified atrial fibrillation; I50.9 Heart failure, unspecified; R73.03 Prediabetes; I10 Essential (primary) hypertension; J45.909 Unspecified asthma, uncomplicated | CPT/HCPCS: 36415; 80048; 83880; 84443 ==

== ENCOUNTER → 2023-01-12 11:52 | Outpatient (BNVA) | payer OTHER, SELFPAY | PROVIDERS: PCP Family Medicine; Visit Provider Internal Medicine Cardiovascular Disease | DX: R06.02 Shortness of breath (principal); R07.9 Chest pain, unspecified | CPT/HCPCS: 93005 ==

== ENCOUNTER 2023-01-28 09:28 | Outpatient (CLI) | payer OTHER, SELFPAY ==
[2023-01-28 09:54] VITALS: BMI 41.7
--- NOTE | 2023-01-28 09:55 | NMCV_ITS ---
NM natty perf SPECT r/s* [id number] Fannie Shay Age: 62 Gender: F : 1960 Exam Date: 01/28/2023 11:16 Ordering Phys: Dillan Magana MD ([email or web address]) Technologist: MARY Myrick Exam Location: [facility] Indications: CORONARY ANGLIOPLASTY STATUS STRESS TEST Please see separate stress test report in [facility] for full findings IMAGE PROTOCOL Rest/Stress 1 Radiopharmaceutical Dose (mCi) Administration Site Administered by Rest: Tc-99m 10.5 IV Bakari Mccarty, LIBRARIAN ASSISTANT Sestamibi Stress:Tc-99m 32.5 IV Bakari Mccarty, LIBRARIAN ASSISTANT Sestamibi Rest: 28-Jan-2023 60 Discovery 630 Stress: 28-Jan-2023 15 Discovery 630 Radiopharmaceutical was injected at 94 % maximum heart rate. Images obtained in supine and prone position. SPECT RESULTS Technical Quality: Excellent Raw Data Analysis: Normal Image Corrections: No attenuation or motion correction applied Summed Stress Score: 0 Summed Rest Score: 0 Summed Difference Score: 0 PERFUSION FINDINGS Uniform myocardial tracer uptake with no significant perfusion abnormalities. FUNCTIONAL RESULTS (calculated via Gated SPECT) Stress Image LV EF (%): 83 Stress EDV (mL):77 TID: 0.79 Stress ESV (mL):13 FUNCTIONAL FINDINGS: Segmental wall motion analysis revealing no gross wall motion abnormalities IMPRESSIONS 1. Unremarkable Myocardial perfusion imaging 2. Normal LV ejection fraction of 83% 3. LV wall motion analysis revealing no gross wall motion abnormalities. 4. Normal LV volume. Low probability for coronary ischemia, based on the above findings Dr Dillan Magana MD FACC (Electronically Signed) Final Date: 28 January 2023 15:43 S
--- NOTE | 2023-01-28 09:55 | ECG_ITS ---
[facility] Test Date: 2023-01-28 Pat Name: Fannie Shay Department: Room: Gender: Female Independent Crop Consultant: Fidenciogera Stout : 1960 Requested By: Dillan Magana Order Number: [id number] Franklin MD: Dillan Magana M.D. Interpretive Statements NAME OF STUDY: EXERCISE SESTAMIBI STRESS TEST INDICATION: Chest Pain, PROCEDURE: The baseline electrocardiogram showed normal sinus rhythm with normal ST-Ts. At the baseline, the patient's blood pressure was 183/106 mm Hg with a heart rate of 96. The patient exercised for 3 minutes on a standard Jeremy protocol. Patient attained a maximum heart rate of 145 beats per minute(92% of the maximum predicted heart rate) with a blood pressure at the peak exercise of 195/87 mm Hg. The EKG at the peak exercise revealed no significant changes. Patient did not have any chest pain or any significant arrhythmis with the exercise Sestamibi was injected 1 minute prior to the peak exercise During the recovery phase, there were no new changes. Blood pressure at the end of the recovery phase was 161/103 mm Hg with a heart rate of 93 per minute. CONCLUSION: 1. No significant EKG changes with the [treadmill exercise 2. No exercise-induced chest pain or cardiac arrhythmia 3. Impaired exercise tolerance, attained a maximum of four-point METs 4. Sestamibi/Sestamibi perfusion results pending; see separate report. 5. Babin treadmill score of -52 (high) Electronically Signed On 01-28-2023 20:04:36 CDT by Dillan Magana M.D. [email or web address]
[2023-01-28 12:13] VITALS: BP 161/103; PULSE 97
== END 2023-01-28 09:29 | disposition home or self-care (01) ==
LOC: CDL 09:29
PROVIDERS: PCP Family Medicine; Visit Provider Internal Medicine Cardiovascular Disease
DX: Z98.61 Coronary angioplasty status (principal)
CPT/HCPCS: 36415; 78452; 80048; 83880; 84443; 93017; A9500

== ENCOUNTER → 2024-05-15 10:41 | Outpatient (BNVA) | payer MEDICAID, SELFPAY | PROVIDERS: PCP Family Medicine; Visit Provider Podiatrist Foot & Ankle Surgery | DX: M85.672 Other cyst of bone, left ankle and foot (principal); M79.89 Other specified soft tissue disorders; M79.673 Pain in unspecified foot | CPT/HCPCS: 73630; 99203 ==

== ENCOUNTER 2024-05-23 09:08 | Outpatient (CLI) | payer MEDICAID, SELFPAY ==
--- NOTE | 2024-05-23 09:30 | MR_ITS ---
WS: [id number] MRI LEFT FOOT WITHOUT CONTRAST. COMPARISON: Radiograph 05/15/2024 Multiplanar, multisequence imaging is performed without contrast. Marker is placed along the medial LEFT foot at the level of the tarsal metatarsal articulation. Corre sponding to the marker is a multi lobulated cystic mass extending over a length of 1.7 cm and transve rsely by 1.0 cm. Mass is predominantly in the subcutaneous soft tissues. There is an additional small er cystic component extending towards the plantar surface measuring 1.1 x 0.4 cm. This smaller collec tion may be connected by a small fluid-filled track or a separate collection which may be a reactive fluid. Lobulated mass is closely associated with the anterior tibialis tendon at the level of the medial cun eiform. On the T2 sequence there is a partial tear of the anterior tibialis tendon. No additional abnormality. Lisfranc ligament appears appropriate. There is a small cortical cyst seco nd metatarsal head. MR/MR foot LT wo con* [id number] IMPRESSION: 1. Lobulated cystic mass measures 1.7 x 1.0 cm corresponds to the palpable mar ker along the medial foot. 2. Cystic mass is at the level of the articulation between the medial cuneifor m and the proximal first metatarsal. Favor this is probably a ganglion/synovial cyst. There is a smaller fluid collection towards the plantar surface which co uld be reactive fluid or extension of the ganglion. 3. Increased T2 signal in the anterior tibialis tendon at the level of the cys tic mass. Partial tear of the anterior tibialis tendon.
== END 2024-05-23 09:09 | disposition home or self-care (01) ==
LOC: RAD 09:09
PROVIDERS: PCP Family Medicine; Visit Provider Podiatrist Foot & Ankle Surgery
DX: M79.89 Other specified soft tissue disorders (principal); R93.6 Abnormal findings on diagnostic imaging of limbs; S96.812A Strain of other specified muscles and tendons at ankle and foot level, left foot, initial encounter; X58.XXXA Exposure to other specified factors, initial encounter
CPT/HCPCS: 73718

== ENCOUNTER 2024-06-18 11:11 | Outpatient (CLI) | payer MEDICARE, SELFPAY ==
--- NOTE | 2024-06-18 11:22 | XR_ITS ---
WS: [id number] XR wrist LT min 3V* [id number] REASON FOR EXAM: LEFT WRIST PAIN FINDINGS: No acute fracture or focal bone lesion. Significant widening of the scapholunate interval with complete loss of the radial scaphoid joint space with extensive sclerosis and osteophytosis. Significant ventral rotation of the lunate. 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
== END 2024-06-18 11:12 | disposition home or self-care (01) ==
PROVIDERS: PCP Family Medicine; Visit Provider Family Medicine
DX: M25.532 Pain in left wrist (principal); R93.6 Abnormal findings on diagnostic imaging of limbs; M19.032 Primary osteoarthritis, left wrist
CPT/HCPCS: 73110

== ENCOUNTER → 2024-07-04 10:09 | Outpatient (BNVA) | payer MEDICARE, SELFPAY | PROVIDERS: PCP Family Medicine; Visit Provider Podiatrist Foot & Ankle Surgery | DX: M79.89 Other specified soft tissue disorders (principal); M79.672 Pain in left foot | CPT/HCPCS: 99213 ==

== ENCOUNTER 2024-10-08 09:21 | Outpatient (CLI) | payer MEDICARE, SELFPAY ==
--- NOTE | 2024-10-08 09:26 | XR_ITS ---
WS: [id number] XR thoracic spine 2V [id number] REASON FOR EXAM: PAIN IN THORACIC SPINE FINDINGS: There is a mild dextroscoliosis and a mild kyphosis of the thoracic spine. There is no significant vertebral body abnormality. There is mild narrowing of the disc spaces with mild endplate sclerosis and osteophytosis in the mid and lower thoracic spine. XR/XR thoracic spine 2V [id number] IMPRESSION: Mild scoliosis and kyphosis. Mild degenerative spondylosis.
== END 2024-10-08 09:22 | disposition home or self-care (01) ==
PROVIDERS: PCP Nurse Practitioner Family; Visit Provider Nurse Practitioner Family
DX: M47.894 Other spondylosis, thoracic region (principal); M41.84 Other forms of scoliosis, thoracic region; M25.78 Osteophyte, vertebrae; M51.34 Other intervertebral disc degeneration, thoracic region
CPT/HCPCS: 72070

== ENCOUNTER 2024-10-18 06:57 | Outpatient (CLI) | payer MEDICARE, SELFPAY ==
--- NOTE | 2024-10-18 07:12 | CT_ITS ---
WS: [id number] LDCT LUNG CANCER SCREENING TECHNIQUE: Noncontrast CT of the chest with coronal and sagittal reformatted images. CLINICAL INFORMATION: HX OF TOBACCO USE COMPARISON: None. DLP: 71.90 mGy.cm DIvol: Mean CTDIvol: 1.80 (mGy) All CT scans at [facility] use at least one of these dose optimization techniques: automated exposure control; mA and/or kV adjustment per patient size (includes targeted exams where dose is matched to clinical indication); or iterative reconstruction. FINDINGS: Calcified granuloma RIGHT upper lobe. Calcified granuloma LEFT upper lobe. No suspicious pulmonary parenchymal abnormalities. Aortic calcification. Small thyroid nodules. No mediastinal or hilar lymphadenopathy. Tiny esophageal hernia. Splenic granulomas. Moderate thoracic kyphosis. Hypertrophic changes thoracic spine. CT/CT lung screening [id number] IMPRESSION: LUNG-RADS: 2-Benign Appearance or Behavior FOLLOW UP: 12 Month: Continue annual screening with LDCT
== END 2024-10-18 06:58 | disposition home or self-care (01) ==
PROVIDERS: PCP Nurse Practitioner Family; Visit Provider Nurse Practitioner Family
DX: Z12.2 Encounter for screening for malignant neoplasm of respiratory organs (principal); Z87.891 Personal history of nicotine dependence
CPT/HCPCS: 71271

== ENCOUNTER → 2025-02-06 10:52 | Outpatient (BNVA) | payer MEDICARE, SELFPAY | PROVIDERS: PCP Nurse Practitioner Family; Visit Provider Student in an Organized Health Care Education/Training Program | DX: M25.532 Pain in left wrist (principal); M19.032 Primary osteoarthritis, left wrist; Z46.89 Encounter for fitting and adjustment of other specified devices | CPT/HCPCS: 73110 ==

== ENCOUNTER 2025-02-06 13:56 | Outpatient (CLI) | payer MEDICARE, SELFPAY | END 2025-02-06 13:57 | disposition home or self-care (01) | LOC: SPT 13:57 | PROVIDERS: PCP Nurse Practitioner Family; Visit Provider Physician Assistant | DX: Z46.89 Encounter for fitting and adjustment of other specified devices (principal); M19.032 Primary osteoarthritis, left wrist | CPT/HCPCS: L3908 ==